=== PATIENT | male | born 1990 | race African-American/Black ===

== ENCOUNTER 2018-05-13 11:43 | Emergency (ER) | payer OTHER ==
[2018-05-13 12:07] VITALS: BMI 23.1
[2018-05-13] MEDS ORDERED: ONDANSETRON *ODT* 4 MG TABLET SL ONE (12:21)
[2018-05-13] MEDS ORDERED: ACETAMINOPHEN 1000 MG/100 ML VIAL (NON FORMULARY) IVPB ONE (12:26)
[2018-05-13] MEDS ORDERED: SODIUM CHLORIDE 500 ML IV STA (12:26)
[2018-05-13] MEDS ORDERED: ACETAMINOPHEN INJECTION 100 ML IVPB ONE (12:43)
[2018-05-13] MEDS ORDERED: ONDANSETRON *ODT* 4 MG TABLET ONE (12:43)
[2018-05-13 13:06] LABS: BASO % 0.5 % (0-2.0); HEMATOCRIT 42.5 % (35.4-49); HEMOGLOBIN 14.9 GM/dL (11.7-16.9); LYMPH % 20.9 % (8-40); MCH 27.9 pg (25.7-33.7); MEAN CELL VOLUME 79.6 fl (80-96); MONO % 18.4 % (3.8-10.2); NEUT % 60.2 % (42.8-82.8); PLATELET COUNT 166 K/MM3 (134-434); RBC 5.34 M/mm3 (4.00-5.60); RDW 14.5 % (11.9-15.9); WHITE BLOOD COUNT 6.5 K/mm3 (4.0-10.0)
[2018-05-13 13:36] LABS: ALK PHOS 66 U/L (45-117); ANION GAP 8 MMOL/L (8-16); BILIRUBIN,TOTAL 0.4 mg/dL (0.2-1); BLOOD UREA NITROGEN 12 mg/dL (7-18); CALCIUM 8.5 mg/dL (8.5-10.1); CHLORIDE 100 mmol/L (98-107); CO2 25 mmol/L (21-32); CREATININE 1.2 mg/dL (0.55-1.3); GLUCOSE,RANDOM 105 mg/dL (74-106); POTASSIUM 4.5 mmol/L (3.5-5.1); SGOT/AST 28 U/L (15-37); SGPT/ALT 35 U/L (13-61); SODIUM 132 mmol/L (136-145); TOT PROT 7.9 g/dl (6.4-8.2)
--- NOTE | 2018-05-13 13:56 | PDOC ---
History of Present Illness - General Chief Complaint: Nausea/Vomiting Stated Complaint: FLU SYMPTOMS Time Seen by Provider: 05/13/18 12:09 History Source: Patient Exam Limitations: Clinical Condition - History of Present Illness Initial Comments: 05/13/18 13:53 Patient with no significant past medical history present with complaint of three -day history of bodyaches, nasal congestion, fever, diarrhea and malaise with headache. Patient report tactile fever for 3 days but never check temperature. Patient denies vomiting by reported nausea. Patient denies any abdominal pain. Patient denies any other symptoms Timing/Duration: other (3 days) Past History - Past Medical History Allergies/Adverse Reactions: Allergies Allergy/AdvReac Type Severity Reaction Status Date / Time No Known Allergies Allergy Verified 05/13/18 12:03 Home Medications: Ambulatory Orders Ipratropium [place] 2 spray NS BID PRN #1 spray 05/13/18 Methylprednisolone [Medrol Dose Javy] 4 mg PO ASDIR #21 tablet 05/13/18 Ondansetron [Zofran Odt -] 4 mg SL Q8H PRN #12 od.tablet 05/13/18 Oseltamivir Phosphate [Tamiflu] 75 mg PO BID 5 Days #10 capsule 05/13/18 COPD: No - Immunization History Td Vaccination: No - Suicide/Smoking/Psychosocial Hx Smoking Status: Yes Smoking History: Current some day smoker Have you smoked in the past 12 months: Yes Number of Cigarettes Smoked Daily: 1 Information on smoking cessation initiated: No 'Breaking Loose' booklet given: 06/06/14 Hx Alcohol Use: No Drug/Substance Use Hx: No Substance Use Type: Marijuana Review of Systems - Review of Systems Able to Perform ROS?: Yes Is the patient limited Tajik proficient: No Constitutional: Yes: Chills, Fever, Malaise HEENTM: Yes: Symptoms Reported, See HPI, Nose Congestion. No: Eye Pain, Blurred Vision, Tearing, Recent change in vision, Double Vision, Cataracts, Ear Pain, Ocular Prothesis, Ear Discharge, Nose Pain, Tinnitus, Nose Bleeding, Hearing Loss, Throat Pain, Throat Swelling, Mouth Pain, Dental Problems, Difficulty Swallowing, Mouth Swelling, Other Respiratory: No: Symptoms reported, See HPI, Cough, Orthopnea, Shortness of Breath, SOB with Exertion, SOB at Rest, Stridor, Wheezing, Productive cough, Hemoptysis, Other Cardiac (ROS): No: Symptoms Reported, See HPI, Chest Pain, Edema, Irregular Heart Rate, Lightheadedness, Palpitations, Syncope, Chest Tightness, Other ABD/GI: Yes: See HPI, Diarrhea, Nausea. No: Vomiting, Abdominal cramping : No: Dysuria, Discharge, Frequency, Flank Pain, Urgency Neurological: Yes: Headache. No: Dizziness All Other Systems: Reviewed and Negative *Physical Exam - Vital Signs Last Vital Signs Temp Pulse Resp BP Pulse Ox 102.3 F H 100 H 20 115/82 99 05/13/18 12:04 05/13/18 12:04 05/13/18 12:04 05/13/18 12:04 05/13/18 12:04 - Physical Exam Comments: 05/13/18 13:52 GENERAL: Well developed, well nourished. Awake and alert. No acute distress. HEENT: Normocephalic, atraumatic. PERRLA, EOMI. No conjunctival pallor. Sclera are non-icteric. Moist mucous membranes. Oropharynx is clear. NECK: Supple. Full ROM. CARDIOVASCULAR: Regular rate and rhythm. No murmurs, rubs, or gallops. Distal pulses are 2+ and symmetric. PULMONARY: No evidence of respiratory distress. Lungs clear to auscultation bilaterally. No wheezing, rales or rhonchi. ABDOMINAL: Soft. Non-tender. Non-distended. No rebound or guarding. No organomegaly. Normoactive bowel sounds. MUSCULOSKELETAL Normal range of motion at all joints. SKIN: Warm and dry. no cyanosis.Normal capillary refill. No rashes. No jaundice. NEUROLOGICAL: Alert, awake, appropriate. Gait is normal without ataxia. PSYCHIATRIC: Cooperative. Good eye contact. Appropriate mood General Appearance: Yes: Nourished, Appropriately Dressed. No: Apparent Distress Moderate Sedation - Procedure Monitoring Vital Signs: Procedure Monitoring Vital Signs Temperature 102.3 F H 05/13/18 12:04 Pulse Rate 100 H 05/13/18 12:04 Respiratory Rate 20 05/13/18 12:04 Blood Pressure 115/82 05/13/18 12:04 O2 Sat by Pulse Oximetry (%) 99 05/13/18 12:04 ED Treatment Course - LABORATORY CBC & Chemistry Diagram: 05/13/18 12:57 05/13/18 12:57 - ADDITIONAL ORDERS Additional order review: Laboratory Results 05/13/18 12:57 Sodium 132 L Potassium 4.5 Chloride 100 Carbon Dioxide 25 Anion Gap 8 BUN 12 Creatinine 1.2 Creat Clearance w eGFR > 60 Random Glucose 105 Calcium 8.5 Total Bilirubin 0.4 AST 28 ALT 35 Alkaline Phosphatase 66 Total Protein 7.9 Albumin 4.0 05/13/18 12:57 RBC 5.34 MCV 79.6 L MCHC 35.0 RDW 14.5 MPV 9.0 Neutrophils % 60.2 Lymphocytes % 20.9 Monocytes % 18.4 H Eosinophils % 0.0 Basophils % 0.5 - Medications Given in the ED: ED Medications Discontinued Medications Generic Name Dose Route Start Last Admin Trade Name Freq PRN Reason Stop Dose Admin Acetaminophen 1,000 mg 05/13/18 12:26 05/13/18 12:45 Ofirmev Injection - IVPB 05/13/18 12:27 1,000 mg ONCE ONE Administration Sodium Chloride 500 mls @ 500 mls/hr 05/13/18 12:26 05/13/18 13:06 Normal Saline - IV 05/13/18 13:25 500 mls/hr ASDIR STA Administration Ondansetron HCl 4 mg 05/13/18 12:21 05/13/18 12:45 Zofran Odt - SL 05/13/18 12:22 4 mg ONCE ONE Administration Medical Decision Making - Medical Decision Making 05/13/18 13:54 Patient with no significant past medical history present with complaint of three -day history of URI symptoms, headache with fever, malaise and diarrhea. Patient with fever 102 Fahrenheit at presentation. Clinical exam unremarkable with no abdominal tenderness on exam. Lungs clear to auscultation bilateral. Normal cardiac exam. Rapid strep and rapid flu tests ordered. CBC and CMP Labs ordered. IV fluid with normal saline 500 mL bolus ordered. Tylenol 1 g IV ordered for fever and headache. Treat based on lab results. 05/13/18 14:59 CBC and chemistry lab unremarkable. Rapid strep and rapid flu test negative. Patient symptoms likely viral syndrome. Patient reported feeling better after IV fluid, Tylenol and Zofran. Patient is stable for outpatient treatment for viral syndrome.Repeat vitals prior to discharge normal with temperature of 98.7 F orally. *DC/Admit/Observation/Transfer Diagnosis at time of Disposition: Viral syndrome, Malaise, Gastroenteritis Diarrhea Qualifiers: Diarrhea type: unspecified type Qualified Code(s): R19.7 - Diarrhea, unspecified Fever Qualifiers: Fever type: unspecified Qualified Code(s): R50.9 - Fever, unspecified - Discharge Dispostion Disposition: HOME Condition at time of disposition: Stable Decision to Admit order: No - Prescriptions Prescriptions: Ipratropium [place] 2 spray NS BID PRN #1 spray PRN Reason: nasal congestion Methylprednisolone [Medrol Dose Javy] 4 mg PO ASDIR #21 tablet Ondansetron [Zofran Odt -] 4 mg SL Q8H PRN #12 od.tablet PRN Reason: nausea Oseltamivir Phosphate [Tamiflu] 75 mg PO BID 5 Days #10 capsule - Referrals - Patient Instructions Printed Discharge Instructions: DI for Viral Upper Respiratory Infection -- Adult Additional Instructions: Your lab work was normal. Your rapid flu and strep test was negative. The symptoms is likely from viral infection. Take medication as prescribed. Increase fluid intake. Take Tylenol as needed for fever. Follow-up with primary care as needed. - Post Discharge Activity Forms/Work/School Notes: Back to Work
[2018-05-13 14:21] VITALS: BP 129/80; PULSE 81; TEMP 99.5
== END 2018-05-13 14:21 | disposition home or self-care (01) ==
LOC: JER 11:43
PROC: 3E0337Z Introduction of Electrolytic and Water Balance Substance into Peripheral Vein, Percutaneous Approach (ICD-10-PCS; principal; 2018-05-13)
PROC: 3E033NZ Introduction of Analgesics, Hypnotics, Sedatives into Peripheral Vein, Percutaneous Approach (ICD-10-PCS; 2018-05-13)
DX: K52.9 Noninfective gastroenteritis and colitis, unspecified (principal); B34.9 Viral infection, unspecified
CPT/HCPCS: 36415; 80053; 85025; 87070; 87804; 87880; 99283-25; J0131; Q0162